=== PATIENT | male | born 1950 | race African-American/Black ===

== ENCOUNTER 2023-03-21 14:10 | Emergency (ER) | payer MEDICARE, OTHER ==
[2023-03-21 14:53] LABS: #Eosinphils 0.3 10x3/uL (0.0-0.5); #Monocytes 0.6 10x3/uL (0.0-1.1); %Basophils 0.7 % (0.0-2.0); %Eosinophils 7.2 % (0.0-6.0); %Lymphocytes 26.9 % (18.0-47.0); %Monocytes 14.5 % (0.0-10.0); Hemoglobin 12.8 g/dL (13.5-17.5); Mean Corpuscular HGB CONC 31.6 g/dL (32.0-36.0); Mean Corpuscular Hemoglobin 27.8 pg (27.0-33.0); Mean Corpuscular Volume 87.9 fl (81.2-95.1); Mean Platelet Volume 9.2 fl (7.4-10.4); Platelet Count 248 10x3/uL (150-450); RBC Distribution Width 13.2 % (11.5-14.5); Red Blood Cell (RBC) Count 4.61 10x6/uL (4.32-5.72)
[2023-03-21 15:11] LABS: ALT (SGPT) 20 U/L (8-55); AST (SGOT) 19 U/L (5-34); Albumin 3.9 g/dL (3.4-4.8); Alkaline Phosphatase 58 U/L (40-110); Anion Gap 15 mmol/L (10-20); BUN (Urea Nitrogen) 14 mg/dL (8.4-25.7); Bilirubin, Total 0.6 mg/dL (0.2-1.2); Calc. Creatinine Clearance 0 mL/min (70-130); Calcium 8.7 mg/dL (7.8-10.44); Carbon Dioxide 24 mmol/L (23-31); Chloride 110 mmol/L (98-107); Estimated GFR 65; Globulin 2.5 g/dL (2.4-3.5); Glucose 84 mg/dL (83-110); Potassium 4.6 mmol/L (3.5-5.1); Protein, Total 6.4 g/dL (5.8-8.1); Sodium 144 mmol/L (136-145)
[2023-03-21 15:18] LABS: CKMB 1.9 ng/mL (0-6.6)
== END 2023-03-21 16:55 | disposition home or self-care (01) ==
LOC: CSHERS 14:10
DX: R55 Syncope and collapse (principal); E78.5 Hyperlipidemia, unspecified; I10 Essential (primary) hypertension
CPT/HCPCS: 36415; 71045; 80053; 82553; 84484; 85025; 93005; 94760

== ENCOUNTER 2023-09-15 16:54 | Inpatient (IN) | payer MEDICARE ==
[2023-09-15] MEDS ORDERED: hydrALAZINE 20 MG/ML VIAL SLOW IVP PRN (17:42)
[2023-09-15] MEDS ORDERED: Acetaminophen 325 MG TAB PO PRN (17:42)
[2023-09-15] MEDS ORDERED: Ondansetron ODT 4 MG TAB PO PRN (17:42)
[2023-09-15 18:00] VITALS: BMI 32.2
[2023-09-15] MEDS: Atorvastatin Calcium 40 MG TAB PO SCH (21:28)
[2023-09-16 04:11] LABS: #Eosinphils 0.2 10x3/uL (0.0-0.5); #Monocytes 0.5 10x3/uL (0.0-1.1); #Neutrophils 2.6 10x3/uL (1.5-8.4); %Basophils 0.7 % (0.0-2.0); %Eosinophils 4.5 % (0.0-6.0); %Monocytes 12.7 % (0.0-10.0); %Neutrophils 60.9 % (40.0-75.0); Hematocrit 38.3 % (38.8-50.0); Hemoglobin 12.3 g/dL (13.5-17.5); Mean Corpuscular HGB CONC 32.1 g/dL (32.0-36.0); Mean Corpuscular Hemoglobin 28.1 pg (27.0-33.0); Mean Corpuscular Volume 87.4 fl (81.2-95.1); Mean Platelet Volume 9.6 fl (7.4-10.4); Platelet Count 232 10x3/uL (150-450); RBC Distribution Width 13.2 % (11.5-14.5); Red Blood Cell (RBC) Count 4.38 10x6/uL (4.32-5.72); White Blood Cell (WBC) Count 4.2 10x3/uL (3.5-10.5)
[2023-09-16 04:28] LABS: Anion Gap 11 mmol/L (10-20); BUN (Urea Nitrogen) 10 mg/dL (8.4-25.7); Calc. Creatinine Clearance 75 mL/min (70-130); Calcium 8.6 mg/dL (7.8-10.44); Carbon Dioxide 25 mmol/L (23-31); Cardiac Risk 4.2 (Less than 4.5); Chloride 108 mmol/L (98-107); Cholesterol 210 mg/dl (< 200 Desired); Estimated GFR 73; Glucose 102 mg/dL (83-110); HDL Cholesterol 50 mg/dL (>60 Neg Risk); LDL Cholesterol, Calculated 138 mg/dL; Potassium 3.6 mmol/L (3.5-5.1); Sodium 140 mmol/L (136-145); Triglycerides 111 mg/dL (Less than 150)
[2023-09-16] MEDS: valACYclovir 500 MG TAB PO SCH (06:15)
[2023-09-16] MEDS: Aspirin 81 mg Enteric Coated Tablet PO SCH (09:01)
[2023-09-16 14:46] LABS: Hemoglobin A1c 5.4 % (4.0-6.0)
[2023-09-16] MEDS: Losartan 50 MG TAB PO SCH (15:38)
[2023-09-17 04:22] LABS: #Eosinphils 0.3 10x3/uL (0.0-0.5); #Monocytes 0.6 10x3/uL (0.0-1.1); #Neutrophils 2.6 10x3/uL (1.5-8.4); %Basophils 0.9 % (0.0-2.0); %Monocytes 13.2 % (0.0-10.0); %Neutrophils 60.7 % (40.0-75.0); Hematocrit 43.1 % (38.8-50.0); Hemoglobin 13.7 g/dL (13.5-17.5); Mean Corpuscular HGB CONC 31.8 g/dL (32.0-36.0); Mean Corpuscular Hemoglobin 27.9 pg (27.0-33.0); Mean Corpuscular Volume 87.8 fl (81.2-95.1); Mean Platelet Volume 9.4 fl (7.4-10.4); Platelet Count 222 10x3/uL (150-450); Red Blood Cell (RBC) Count 4.91 10x6/uL (4.32-5.72); White Blood Cell (WBC) Count 4.3 10x3/uL (3.5-10.5)
[2023-09-17 04:40] LABS: Anion Gap 12 mmol/L (10-20); BUN (Urea Nitrogen) 9 mg/dL (8.4-25.7); Calc. Creatinine Clearance 81 mL/min (70-130); Calcium 8.9 mg/dL (7.8-10.44); Carbon Dioxide 27 mmol/L (23-31); Cardiac Risk 3.9 (Less than 4.5); Chloride 105 mmol/L (98-107); Cholesterol 202 mg/dl (< 200 Desired); Estimated GFR 81; Glucose 97 mg/dL (83-110); HDL Cholesterol 52 mg/dL (>60 Neg Risk); LDL Cholesterol, Calculated 130 mg/dL; Potassium 3.8 mmol/L (3.5-5.1); Sodium 140 mmol/L (136-145); Triglycerides 101 mg/dL (Less than 150)
[2023-09-17] MEDS: Losartan 25 MG TAB PO SCH (09:18)
[2023-09-17 09:26] VITALS: TEMP 97.5
[2023-09-17] MEDS: FLU VACC QS2023(65UP)/MF59C/PF 60 MCG/0.5 ML SYRINGE IM ONE (09:26)
[2023-09-17 11:51] VITALS: BP 157/77
== END 2023-09-17 12:21 | disposition home or self-care (01) | DRG 93 ==
LOC: CSHERS 16:54 → UNDOADMOB 16:58 → CSHTELE 16:58 → UNDOADMOB 16:58 → CSHTELE 17:42 → UNDODISOB 09-17 12:21
PROVIDERS: ADMIT Family Medicine; ATTEND Physician Assistant
PROC: B24BZZZ Ultrasonography of Heart with Aorta (ICD-10-PCS; principal; 2023-09-17)
DX: R29.90 Unspecified symptoms and signs involving the nervous system (principal); I10 Essential (primary) hypertension; R13.10 Dysphagia, unspecified; R55 Syncope and collapse; Z86.73 Personal history of transient ischemic attack (TIA), and cerebral infarction without residual deficits; Z88.0 Allergy status to penicillin; Z98.890 Other specified postprocedural states; Z90.49 Acquired absence of other specified parts of digestive tract; Z79.82 Long term (current) use of aspirin; Z79.899 Other long term (current) drug therapy
CPT/HCPCS: 36415; 70551; 80048; 80061; 83036; 84443; 85025; 93306; 93880; G0378